=== PATIENT | female | born 1995 | race Caucasian/White ===

== ENCOUNTER 2021-03-03 14:12 | Emergency (ER) | payer SELFPAY ==
[2021-03-03] MEDS ORDERED: Ondansetron PF 4 MG/2 ML Vial ONE (17:19)
[2021-03-03 17:23] LABS: #Basophils 0.1 10x3/uL (0.0-0.2); #Monocytes 0.7 10x3/uL (0.0-1.1); #Neutrophils 3.7 10x3/uL (1.5-8.4); %Basophils 0.9 % (0.0-2.0); %Eosinophils 0.5 % (0.0-6.0); %Lymphocytes 21.5 % (18.0-47.0); %Monocytes 12.8 % (0.0-10.0); %Neutrophils 63.8 % (40.0-75.0); Hemoglobin 14.8 g/dL (12.0-15.5); Mean Corpuscular HGB CONC 35.1 g/dL (32.0-36.0); Mean Corpuscular Hemoglobin 30.9 pg (27.0-33.0); Mean Corpuscular Volume 88.1 fl (81.6-98.3); Mean Platelet Volume 10.5 fl (7.4-10.4); Platelet Count 248 10x3/uL (150-450); Red Blood Cell (RBC) Count 4.79 10x6/uL (3.90-5.03); White Blood Cell (WBC) Count 5.8 10x3/uL (3.5-10.5)
[2021-03-03 17:34] LABS: ALT (SGPT) 191 U/L (8-55); AST (SGOT) 160 U/L (5-34); Albumin 4.2 g/dL (3.5-5.0); Alkaline Phosphatase 67 U/L (40-110); Anion Gap 15 mmol/L (10-20); BUN (Urea Nitrogen) 7 mg/dL (7.0-18.7); Bilirubin, Total 1.1 mg/dL (0.2-1.2); Calc. Creatinine Clearance 0 mL/min (70-130); Calcium 9.5 mg/dL (7.8-10.44); Carbon Dioxide 23 mmol/L (22-29); Chloride 101 mmol/L (98-107); Globulin 3.7 g/dL (2.4-3.5); Glucose 424 mg/dL (70-105); Potassium 3.8 mmol/L (3.5-5.1); Protein, Total 7.9 g/dL (6.0-8.3); Sodium 135 mmol/L (136-145)
[2021-03-03 17:51] LABS: Bilirubin Neg (Negative); Blood, Urine 25 (Negative); Glucose, Urine (Dipstick) >=1000 mg/dL (Negative); Ketone, Urine Negative (Negative); Leukocyte Negative (Negative); Nitrite Negative (Negative); Protein, Urine (Dipstick) 30 mg/dl (Neg-Trace); Specific Gravity, Urine 1.015 (1.002-1.036); Urobilinogen Normal mg/dL (Less than 2)
[2021-03-03 17:53] LABS: Clarity Clear (Clear)
[2021-03-03 18:03] LABS: RBC/HPF 0-3 HPF (0-3); Squamous Epithelial 0-3 HPF (0-3); WBC/HPF 0-3 HPF (0-3)
[2021-03-03 18:04] LABS: Bacteria/HPF None Seen HPF (None Seen)
[2021-03-03 18:13] LABS: Actual Bicarbonate (HCO3v) 24 mEq/L (22-28); Base Excess -0.8 mEq/L (-2.0 to +3.0); Calcium, Ionized (venous) 1.08 mmol/L (1.16-1.32); Chloride (VBG) 101 mmol/L (98-106); Hemoglobin (Hb) 15.1 g/dL (11.7-15.5); Potassium (VBG) 3.52 mmol/L (3.70-5.30); Puncture Site Other Site; RapidComm Collect By CBN; Sodium 135.9 mmol/L (133-146); pH (venous) 7.41 (7.32-7.43)
[2021-03-04 09:01] LABS: SARS-CoV-2 PCR by NAA Not Detected (NotDetected)
== END 2021-03-03 19:04 | disposition home or self-care (01) ==
LOC: CSHERS 14:12
DX: B34.9 Viral infection, unspecified (principal); Z20.822 Contact with and (suspected) exposure to COVID-19; E11.9 Type 2 diabetes mellitus without complications
CPT/HCPCS: 36416; 80053; 81003; 81015; 82010; 82805; 85025; 96374; J2405; U0003; U0005